=== PATIENT | female | born 1935 | race Caucasian/White ===

== ENCOUNTER 2017-11-22 12:54 | Outpatient (RCR) | payer MEDICARE, BC ==
[2017-11-21 13:28] VITALS: BP 136/70
[~2017-11-22] VITALS: Ht 170.2 cm; Wt 78.5 kg
[~2017-11-22 12:54] MED LIST: ACYC800T99 PO; APIX2.5T PO; ASPI-1471 PO; CEF300 PO; CHOL10005 PO; CIPR-214 PO; CIPR-215 PO; CIPR-345 PO; DIAZ-308 PO; FLUC100T35 PO; HYDR-385 PO; IBUP-1618 PO; IBUP600T22 PO; LIDO700A29 TD; LISI-351 PO; LISI-362 PO; LISI20TA29 PO; LOR5/325 PO; NITR-105 PO; OMEP-125 PO; ONDA4TAB PO; OXYC-865 PO; OXYGENHOME INH; PNEU0.5D3 IM; POLY17PO25 PO; PRAM0.2520 PO; PSYL0.5241 PO; RANI-318 PO; SENN-90 PO; SENN8.6T34 PO; SIMV-49 PO; SULF-198 PO; TRAM-420 PO; WARF1TAB63 PO; WARF2.5T62 PO; ZOST19404 SQ
[2017-11-22 13:00] VITALS: BP 156/68
--- NOTE | 2017-11-23 04:33 | [facility] ONCOLOGY NOTE ---
EVENT DATE: November 22, 2017 DIAGNOSIS Induced pulmonary embolism after orthopedic surgery. CHIEF COMPLAINT Patient is here today for followup of her pulmonary embolism. HEMATOLOGY HISTORY Patient is an 82-year-old female who had orthopedic surgery and the patient was put on prophylactic Coumadin after that for 6 weeks, but she developed severe hypoxemia and hyponatremia, and the patient was admitted to the hospital, and in the ER patient was found to have severe hypoxia. Patient was found to have pulmonary embolus. She was maintained on Coumadin since then. She started the anticoagulation in November 2016. She has fluctuation in the INR with Coumadin use. Patient actually was found lately with high D-dimer, and the patient was referred by Dr. Bae to decide about the duration of anticoagulation. Patient would like to stop her anticoagulation currently. HISTORY OF PRESENT ILLNESS Patient is here today for followup of her pulmonary embolism, which was induced after orthopedic surgery, currently on Eliquis. Patient is complaining of exertional shortness of breath and constipation, but other than that she is doing really very good. PAST MEDICAL HISTORY 1. Pulmonary embolism diagnosed November 2016. 2. Hypertension. 3. Overactive bladder. 4. Fracture, left wrist. 5. Chronic neck pain. 6. History of shingles, right face. PAST SURGICAL HISTORY 1. Appendectomy. 2. Right total hip replacement. 3. Left total knee replacement. FAMILY HISTORY Breast cancer in her aunt. SOCIAL HISTORY The patient is . She is a never smoker. She occasionally drinks wine. No abuse of illicit drugs. She has 1 son and 2 daughters. 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 CURRENT MEDICATIONS 1. Senna laxative 8.6 mg p.r.n. 2. Warfarin sodium 1 mg Sunday, Sunday, Sunday and Sunday and 2 mg Sunday, and Sunday. 3. Lisinopril 10 mg tablet daily. 4. Zantac 150 mg as needed. 5. Aspirin 81 mg daily. 6. Omeprazole 20 mg daily. 7. Vitamin D3 1000 units daily. 8. Simvastatin 20 mg daily. 9. Diazepam 5 mg daily. 10. Hydrocodone/APAP 5/325 one tablet every 4 hours p.r.n. for pain. ALLERGIES 1. SULFA, which caused bad headache. 2. MORPHINE, which caused nausea and vomiting. 3. HYDROCODONE, which caused nausea and vomiting. 4. IODINE, does not know the reaction. REVIEW OF SYSTEMS CONSTITUTIONAL: No appetite or weight change. No fever, chills or sweating. No recent infection. HEENT: Ears: No tinnitus or hearing problem. Nose: No nasal discharge or epistaxis. Throat: No sore throat or mouth ulcers. Eyes: No diplopia or visual changes. RESPIRATORY: She has exertional shortness of breath. CARDIOVASCULAR: No chest pain, orthopnea, or paroxysmal nocturnal dyspnea (PND) . No edema. No palpitations. GASTROINTESTINAL: She has constipation intermittently. GENITOURINARY: No hematuria or dysuria. MUSCULOSKELETAL: No pain in the muscles, joints or bones. NEUROLOGICAL: No tingling or numbness in the hands or feet. No headaches or convulsions. HEMATOLOGIC/LYMPHATIC: No bleeding or easy bruising. No weakness or fatigued. No enlarged lymph nodes. SKIN: No skin rash or lumps. PSYCHIATRIC: No anxiety or depression. PHYSICAL EXAMINATION GENERAL: Looks stable. Well-developed, well-nourished, and in no acute distress. VITAL SIGNS: Blood pressure 156/68, pulse 80 per minute, respirations 16 per minute, temperature 97.3, pulse oximetry 94% on room air. HEENT: Head: Atraumatic. No sinus tenderness to palpation. Eyes: No icterus or conjunctivitis. Mouth and throat: No oral thrush or mucositis. NECK: Supple. No cervical or supraclavicular lymphadenopathy. LUNGS: Clear to auscultation and percussion bilaterally. HEART: Regular rate and rhythm. No gallops, murmurs, clicks or rubs. ABDOMEN: Soft and lax. No tenderness. No hepatosplenomegaly. No masses. EXTREMITIES: No cyanosis, clubbing or edema. LYMPHATICS: No peripheral lymphadenopathy. NEUROLOGICAL: Conscious, alert and oriented times three. No focal motor or sensory deficits. PSYCHIATRIC: Mood and affect appear normal. SKIN: No skin rash, bruise or purpuric eruption. DIAGNOSTIC DATA D-dimer is 1.77, which is down from 2.35. ASSESSMENT 1. Induced pulmonary embolism after orthopedic surgery. Patient was maintained on Coumadin received between November 2016 through April 2017 when Coumadin was switched to Eliquis 2.5 mg twice daily since then until now. Patient finished one year of Eliquis, which is used for induced pulmonary embolism, and for this reason we are planning to stop her anticoagulation with Eliquis, and we will follow in the future. I talked to the patient and her today about that, and if she will develop another blood clot in the future, then she will be a candidate for a lifelong anticoagulation. Her D- dimer actually is going down, dropped from 2.35 and currently 1.77. I am planning to see her again in 6 months with another D-dimer at that time. PLAN 1. Stop Eliquis. 2. Patient to return in six months with D-dimer level. 3. Patient is to contact us for any new concerns or complaints. LAURA
== END 2017-12-07 09:06 | disposition home or self-care (01) ==
LOC: ONC 12:54
PROVIDERS: ATTEND Internal Medicine Hematology
DX: Z86.711 Personal history of pulmonary embolism (principal); Z79.01 Long term (current) use of anticoagulants; R06.02 Shortness of breath; K59.00 Constipation, unspecified; Z79.899 Other long term (current) drug therapy
CPT/HCPCS: 36415; 85379; G0463; 99212

== ENCOUNTER 2018-06-06 13:24 | Outpatient (RCR) | payer MEDICARE, BC ==
[2018-06-05 13:51] VITALS: BP 169/78
[~2018-06-06 13:24] MED LIST changes: +WARF1TAB15 PO; -WARF1TAB63 PO
[2018-06-06 13:33] VITALS: BP 161/77
--- NOTE | 2018-06-06 19:30 | ONCOLOGY FOLLOW UP NOTE ---
EVENT DATE: June 06, 2018 DIAGNOSIS Induced pulmonary embolism after orthopedic surgery. CHIEF COMPLAINT Patient is here today for followup of her pulmonary embolism. HEMATOLOGY HISTORY Patient is an 82-year-old female who had orthopedic surgery and the patient was put on prophylactic Coumadin after that for 6 weeks, but she developed severe hypoxemia and hyponatremia, and the patient was admitted to the hospital, and in the ER patient was found to have severe hypoxia. Patient was found to have pulmonary embolus. She was maintained on Coumadin since then. She started the anticoagulation in November 2016. She has fluctuation in the INR with Coumadin use. Patient actually was found lately with high D-dimer, and the patient was referred by Dr. Bae to decide about the duration of anticoagulation. Patient would like to stop her anticoagulation currently. HISTORY OF PRESENT ILLNESS Patient is here today for followup of her pulmonary embolism, which was induced after orthopedic surgery. Patient is doing fine currently. She has some dry cough. She has occasional constipation. She has sciatic and right hip pain. She has headache. She bruises easily. PAST MEDICAL HISTORY 1. Pulmonary embolism diagnosed November 2016. 2. Hypertension. 3. Overactive bladder. 4. Fracture, left wrist. 5. Chronic neck pain. 6. History of shingles, right face. PAST SURGICAL HISTORY 1. Appendectomy. 2. Right total hip replacement. 3. Left total knee replacement. FAMILY HISTORY Breast cancer in her aunt. SOCIAL HISTORY The patient is . She is a never smoker. She occasionally drinks wine. No abuse of illicit drugs. She has 1 son and 2 daughters. 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 CURRENT MEDICATIONS 1. Senna laxative 8.6 mg p.r.n. 2. Warfarin sodium 1 mg Sunday, Sunday, Sunday and Sunday and 2 mg Sunday, and Sunday. 3. Lisinopril 10 mg tablet daily. 4. Zantac 150 mg as needed. 5. Aspirin 81 mg daily. 6. Omeprazole 20 mg daily. 7. Vitamin D3 1000 units daily. 8. Simvastatin 20 mg daily. 9. Diazepam 5 mg daily. 10. Hydrocodone/APAP 5/325 one tablet every 4 hours p.r.n. for pain. ALLERGIES 1. SULFA, which caused bad headache. 2. MORPHINE, which caused nausea and vomiting. 3. HYDROCODONE, which caused nausea and vomiting. 4. IODINE, does not know the reaction. REVIEW OF SYSTEMS CONSTITUTIONAL: No appetite or weight change. No fever, chills or sweating. No recent infection. HEENT: Ears: No tinnitus or hearing problem. Nose: No nasal discharge or epistaxis. Throat: No sore throat or mouth ulcers. Eyes: No diplopia or visual changes. RESPIRATORY: The patient has dry cough. CARDIOVASCULAR: No chest pain, orthopnea, or paroxysmal nocturnal dyspnea (PND) . No edema. No palpitations. GASTROINTESTINAL: She has occasional constipation. GENITOURINARY: No hematuria or dysuria. MUSCULOSKELETAL: She has sciatica and right hip pain. NEUROLOGICAL: No tingling or numbness in the hands or feet. No convulsions. She has headaches. HEMATOLOGIC/LYMPHATIC: No bleeding. She bruises easily. No weakness or fatigued. No enlarged lymph nodes. SKIN: No skin rash or lumps. PSYCHIATRIC: No anxiety or depression. PHYSICAL EXAMINATION GENERAL: Looks stable. Well-developed, well-nourished, and in no acute distress. VITAL SIGNS: Blood pressure 161/77, pulse 78 per minute, respirations 16 per minute, temperature 96.7, pulse oximetry 93% on room air. HEENT: Head: Atraumatic. No sinus tenderness to palpation. Eyes: No icterus or conjunctivitis. Mouth and throat: No oral thrush or mucositis. NECK: Supple. No cervical or supraclavicular lymphadenopathy. LUNGS: Clear to auscultation and percussion bilaterally. HEART: Regular rate and rhythm. No gallops, murmurs, clicks or rubs. ABDOMEN: Soft and lax. No tenderness. No hepatosplenomegaly. No masses. EXTREMITIES: No cyanosis, clubbing or edema. LYMPHATICS: No peripheral lymphadenopathy. NEUROLOGICAL: Conscious, alert and oriented times three. No focal motor or sensory deficits. PSYCHIATRIC: Mood and affect appear normal. SKIN: No skin rash, bruise or purpuric eruption. DIAGNOSTIC DATA D-dimer is 1.25, which is down from 1.77. ASSESSMENT Induced pulmonary embolism after orthopedic surgery. Patient was maintained on Coumadin received between November 2016 through April 2017 when Coumadin was switched to Eliquis 2.5 mg twice daily until it was discontinued after one year of treatment. Patient currently not on any anticoagulation. She showed a high D-dimer which dropped from 2.35 to 1.77 and currently it is 1.25, so it is trending down. I am planning to see her again in six months after D-dimer test at that time. I advised the patient if she is traveling for a long distance to take Lovenox prophylactic shot 40 mg subcutaneously prior to each leg of travel. PLAN 1. Continue followup. 2. Patient to return in six months with dimer level. 3. Lovenox 40 mg subcutaneously prior to travel and each leg of her trip. 4. Patient is to contact us for any new concerns or complaints. ZACHARYD
== END 2018-06-14 09:21 | disposition home or self-care (01) ==
LOC: ONC 13:24
PROVIDERS: ATTEND Internal Medicine Hematology
DX: I26.99 Other pulmonary embolism without acute cor pulmonale (principal); Z79.01 Long term (current) use of anticoagulants; R06.02 Shortness of breath; K59.00 Constipation, unspecified; Z79.899 Other long term (current) drug therapy; I10 Essential (primary) hypertension; N32.81 Overactive bladder; Z96.641 Presence of right artificial hip joint; Z96.652 Presence of left artificial knee joint
CPT/HCPCS: 36415; 85379; G0463; 99212

== ENCOUNTER → 2018-09-20 | Outpatient (CLI) | payer MEDICARE, BC ==
[2018-09-20 10:43] LABS: PLATELET COUNT, AUTOMATED 260 K/uL (150-450)
[2018-09-20 10:49] LABS: LDL CHOLESTEROL 55 mg/dl
== END ==
LOC: LAB 09:57
PROVIDERS: ATTEND Emergency Medicine
DX: I10 Essential (primary) hypertension (principal); M85.80 Other specified disorders of bone density and structure, unspecified site
CPT/HCPCS: 36415; 82040; 82247; 82306; 82310; 82374; 82435; 82465; 82565; 82947; 83718; 84075; 84132; 84155; 84295; 84450; 84460; 84478; 84520; 85025

== ENCOUNTER → 2018-10-07 | Outpatient (CLI) | payer MEDICARE, BC ==
[~2018-10-07] MED LIST changes: +PNEI IM; -SENN8.6T34 PO; +SENN8.6T35 PO
== END ==
LOC: LAB 16:01
PROVIDERS: ATTEND Emergency Medicine
DX: R20.8 Other disturbances of skin sensation (principal)
CPT/HCPCS: 36415; 82607

== ENCOUNTER → 2019-04-30 | Outpatient (CLI) | payer MEDICARE, BC ==
[~2019-04-30] MED LIST changes: +AZIT-1 PO; +HYDR12.561 PO; +LISI-374 PO; +LISI30TA49 PO; -OMEP-125 PO; +OMEP-126 PO
== END ==
LOC: LAB 16:46
PROVIDERS: ATTEND Emergency Medicine
DX: I10 Essential (primary) hypertension (principal)
CPT/HCPCS: 82310; 82374; 82435; 82565; 82947; 84132; 84295; 84520